=== PATIENT | female | born 1955 | race Caucasian/White ===

== ENCOUNTER 2017-02-02 22:00 | Inpatient (IN) | payer MEDICARE, OTHER ==
[~2017-02-02] VITALS: Ht 170.2 cm; Wt 57.2 kg
[2017-02-02 22:30] VITALS: BP 111/61
[2017-02-02] MEDS ORDERED: ACETAMINOPHEN 325 MG TABLET PO PRN (22:30)
[2017-02-02] MEDS ORDERED: MAG HYDROX/AL HYDROX/SIMETH 30 ML UDC PO PRN (22:30)
[2017-02-02] MEDS ORDERED: MAGNESIUM HYDROXIDE 30 ML UDC PO PRN (22:30)
[2017-02-02] MEDS ORDERED: ZOLPIDEM TARTRATE 5 MG TABLET PO PRN (22:30)
--- NOTE | 2017-02-02 22:30 | NUR ---
GPS ADMISSION NOTE, RECEIVED PATIENT FROM [facility] [place]. PATIENT ARRIVED ON THIS UNIT AT 2230 VIA STRETCHER WITH 2 EMT ESCORTS. PATIENT ADMITTED ON A 5150 HOLD FOR DTS AND GD . PER HOLD PATIENT WAS EXHIBITING UNUSUAL BEHAVIOR AND MAKING UNREALISTIC STATEMENTS. PATIENT REPORTS THAT, " THERE ARE MEN UNDER THE HOUSE AND THEY SPY ON ME. THESE MEN HAVE SHOES THAT HAVE LISTENING DEVICES ". PATIENT SYMPTOMS ARE INTERFERING WITH HER ABILITY TO ACCEPT OR ACCESS BASIC SELF CARE OR BE SAFE IN HER HOME. THE 5150 WAS REVIEWED AND THE DOCUMENTATION IN THE 5150 HOLD APPEARS TO REFLECT THE PRESENTATION OF THE PATIENT. UPON FACE TO FACE ASSESSMENT PATIENT IS CURRENTLY LYING IN BED AWAKE, HAS A COMPLAINT OF RIGHT KNEE PAIN AT 5 OUT 10 ON THE PAIN SCALE. PATIENT ALSO HAS RIGHT MOUTH PAIN FROM A LOST TOOTH AT 8 OUT 10 ON THE PAIN SCALE. PATIENT IS TAKING ORAL PAIN MEDICATION FOR THIS PAIN. PATIENT IS DISPLAYING NO S/S OF APPARENT DISTRESS. PATIENT BREATHING IS UNLABORED WITH EQUAL RISE AND FALL OF THE CHEST. PATIENT IS ALERT AND ORIENTATED X 3 ON ROOM AIR. PATIENT ASSISTED WITH TURING AND REPOSITIONING Q2HR AND PRN FOR COMFORT AND CIRCULATION. PATIENT HAS NO NEEDS AT THIS TIME. PATIENT IS NOTED TO BEING WITHDRAWN, ANXIOUS, COOPERATIVE, HAS AUDITORY DELUSIONS, AND NEEDS REDIRECTION. PATIENT DENIES SUICIDE IDEATIONS AND HOMICIDAL IDEATIONS AT THIS TIME. PATIENT IS UNDER THE PSYCHIATRIC CARE OF DR. POWELL AND THE MEDICAL CARE OF DR MCBRIDE. PATIENT BELONGINGS WERE INVENTORIED AND CHECKED FOR CONTRABAND. ALL CONTRABAND REMOVED AND STORED IN PATIENT HALLWAY LOCKER. PATIENT ADVANCED DIRECTIVES PREFERENCE, IMMUNIZATIONS QUESTIONER, NECESSARY PAPERWORK, AND SKIN ASSESSMENT COMPLETED. PATIENT ORIENTATED TO ROOM, FLOOR, AND STAFF WITH ALL QUESTIONS ANSWERED. PATIENT EDUCATED ON THE USE OF THE CALL CASTRO. PATIENT BED SIDE RAILS ARE UP X 2 FOR SAFETY. PATIENT BED IS LOCKED, LOW AND I WILL CONTINUE TO MONITOR THIS PATIENT Q 15 MIN WITH THE HELP OF STAFF TO MAINTAIN SAFETY.
[2017-02-02] MEDS ORDERED: LORAZEPAM 0.5 MG TABLET ONE (23:39)
[2017-02-02] MEDS: LORAZEPAM 0.5 MG TABLET PO PRN (23:43)
--- NOTE | 2017-02-02 23:43 | NUR ---
GPS RN NOTE, PATIENT HAS A COMPLAINT OF FEELING ANXIOUS AND WOULD LIKE MEDICATION TO HELP CALM HER DOWN. PATIENT VITAL SIGNS ARE STABLE. GAVE ATIVAN 1MG PO Q8HR PRN ORDERED. WILL REASSESS FOR ANXIETY AND I WILL CONTINUE TO MONITOR THIS PATIENT.
[2017-02-02] MEDS ORDERED: OXCA300T PO ×2 (23:55)
[2017-02-02] MEDS ORDERED: BUPR1FIL SL (23:56)
[2017-02-02] MEDS ORDERED: KETO10TA2 PO (23:58)
[2017-02-02] MEDS ORDERED: LEVO25TA7 PO (23:58)
[2017-02-03] MEDS ORDERED: PRAM0.253 PO
[2017-02-03] MEDS ORDERED: BACL10TA PO (00:03)
[2017-02-03] MEDS ORDERED: ARMO150T4 PO (00:04)
[2017-02-03] MEDS ORDERED: DOXE50CA4 PO (00:05)
[2017-02-03] MEDS ORDERED: HYDROCODONE/APAP 5/325MG 1 EACH TABLET PO PRN (01:30)
--- NOTE | 2017-02-03 01:32 | NUR ---
GPS RN NOTE, PATIENT HAS A COMPLAINT OF PAIN ON HER RIGHT KNEE AT 4 OUT 10 ON THE PAIN SCALE, USES NICOTINE, AND NEEDS A MED RECONCILIATION. PAGED [facility] AND INFORMED DR REED ZHOU OF MY FINDINGS. DR REED ZHOU ORDERED A 14MG NICOTINE PATCH TD DAILY, NORCO 5-325 1 TAB PO Q6HR PRN, AND STATED HE WOULD LOOK INTO DOING THIS PATIENT MEDICATION RECONCILIATION. ALL ORDERS NOTED AND CARRIED OUT. WILL CONTINUE TO MONITOR THIS PATIENT.
[2017-02-03] MEDS ORDERED: HYDROCODONE/APAP 5/325MG 1 EACH TABLET ONE (04:49)
--- NOTE | 2017-02-03 04:52 | NUR ---
GPS RN NOTE, PATIENT HAS A COMPLAINT OF CHRONIC RIGHT KNEE PAIN AT 6 OUT 10 ON THE PAIN SCALE AND WOULD LIKE MEDICATION AT THIS TIME. PATIENT VITAL SIGNS ARE STABLE. GAVE NORCO 5-325 1 TAB PO Q6 HR PRN ORDERED. WILL REASSESS PAIN AND I WILL CONTINUE TO MONITOR THIS PATIENT.
[2017-02-03 07:26] LABS: BILIRUBIN,TOTAL 0.2 mg/dL (0.2-1.0); CALCIUM, SERUM 8.6 mg/dL (8.5-10.1); CREATININE 0.7 mg/dL (0.6-1.3); POTASSIUM 4.1 mmol/L (3.5-5.1); TOTAL PROTEIN, SERUM 5.6 g/dL (6.4-8.2)
[2017-02-03 07:29] LABS: CHOLESTEROL 163 mg/dL (<200); HDL CHOLESTEROL 59 mg/dL (40-60); LDL 90 mg/dL (0-99); TRIGLYCERIDES 58 mg/dL (30-150)
[2017-02-03 07:35] LABS: BASOPHILS % (AUTO) 0.6 % (0.0-2.0); EOSINOPHILS # (AUTO) 0.2 /CMM (0.0-0.7); EOSINOPHILS % (AUTO) 5.8 % (0.0-6.0); HEMATOCRIT 35 % (33-45); HEMOGLOBIN 11.9 g/dL (11.5-14.8); LYMPHOCYTES % (AUTO) 25.3 % (20.0-44.0); MEAN CORPUSCULAR HEMOGLOBIN 31 PG (26.0-33.0); MEAN CORPUSCULAR HGB CONC 34 g/dl (31.0-36.0); MEAN CORPUSCULAR VOLUME 93 fL (82-100); MONOCYTES # (AUTO) 0.5 /CMM (0.1-1.30); MONOCYTES % (AUTO) 12.3 % (2.0-12.0); NEUTROPHILS # (AUTO) 2.2 /CMM (1.8-8.9); PLATELET COUNT (AUTO) 233 /CMM (150-450); RED BLOOD CELL COUNT(AUTO) 3.79 MIL/uL (4.0-5.2); WHITE BLOOD COUNT (AUTO) 3.9 K/uL (4.3-11.0)
[2017-02-03 08:00] VITALS: BP 100/67
[2017-02-03] MEDS: NICOTINE PATCH (14MG) 14 MG PATCH.TD24 TD SCH (08:27)
[2017-02-03] MEDS: LEVOTHYROXINE SODIUM 25 MCG TABLET PO SCH (08:27)
[2017-02-03] MEDS: OXCARBAZEPINE 150 MG TABLET PO SCH (12:10)
[2017-02-03] MEDS: LORAZEPAM 0.5 MG TABLET PO PRN ×2 (14:43→20:17)
[2017-02-03 16:00] VITALS: BP 120/41
--- NOTE | 2017-02-03 17:48 | NUR ---
Initial discharge note: Pt. lives alone in a mobile home [address] [place] [address] and wants to return when discharged. AG will confirm with brother Juan Ramon [phone] that pt. is safe living alone. Pt. has an telecom specialist appointment on February 10, at 2:15PM with Dr. Angel [phone]. AG will follow up with MD and will help form safe and proper discharge.
[2017-02-03] MEDS ORDERED: PRAMIPEXOLE DI-HCL 0.25 MG TABLET PO SCH (18:00)
--- NOTE | 2017-02-03 19:15 | NUR ---
in initial round patient complaining she lost her crown she took a shower at 615 pm left the crown in table warped around in tissue paper we check all over the room i am not sure patient is laying or telling the truth notify the charge nurse.
[2017-02-03 20:00] VITALS: BP 110/63
[2017-02-03] MEDS ORDERED: BACLOFEN (10 MG) 10 MG TABLET PO SCH ×2 (21:00→22:00)
[2017-02-03] MEDS ORDERED: OXCARBAZEPINE 150 MG TABLET PO SCH (22:00)
[2017-02-03] MEDS ORDERED: DOXEPIN HCL 10 MG CAPSULE PO SCH (22:00)
--- NOTE | 2017-02-04 07:30 | NUR ---
RN GPS OPENING NOTE PT IS OUT OF BED, A&OX4. NO SOB, BREATHING ON ROOM AIR. NO ACUTE DISTRESS NOTED, ATTENDED ALL NEEDS ANTICIPATED , DENIES SI/ HI AT THIS TIME. PT. IS COOPERATIVE. SAFETY PRECAUTIONS OBSERVED. WILL CONTINUE TO MONITOR. CALL LIGHT IS WITHIN REACH.
[2017-02-04 08:00] VITALS: BP 107/72
[2017-02-04] MEDS: OXCARBAZEPINE 150 MG TABLET PO SCH (10:05)
[2017-02-04] MEDS: LEVOTHYROXINE SODIUM 25 MCG TABLET PO SCH (10:05)
[2017-02-04] MEDS: NICOTINE PATCH (14MG) 14 MG PATCH.TD24 TD SCH (10:05)
[2017-02-04] MEDS: LORAZEPAM 0.5 MG TABLET PO PRN (10:10)
--- NOTE | 2017-02-04 12:19 | NUR ---
DR. MORRISON GAVE AN ORDER TO D/C HOLD AND D/C TO HER MOBILE HOME AT [address] [place] [address]. PT. WITHOUT DISTRESS, DENIES SUICIDAL AND HOMICIDAL AND TO FOLLOW UP WITH PSYCH AND MEDICAL DOCTORS. CALLED THE BROTHER CONSTANTINE AT [phone] AND LEFT A MESSAGE REGARDING THE DISCHARGE. PER PT. NO NEED FOR HER BROTHER TO CALL BACK BECAUSE SHE IS NOT LIVING WITH HIM. DR. MORRISON MADE AWARE THAT REFERENCE SERVICES HEAD LEFT A MESSAGE TO THE BROTHER AND SAID TO DISCHARGE HER IF HE WILL NOT CALL BACK. Addendum: 02/04/17 at 1709 by SIVA ROBBINS RN PT. IS FOR DISCHARGE WITH NO PRESCRIPTIONS AND PER PT. SHE DOESN'T NEED PRESCRIPTIONS BECAUSE SHE STILL HAVE THE MEDS.
--- NOTE | 2017-02-04 12:40 | NUR ---
DR. MAGALLON MADE AWARE OF THE DISCHARGE AND LIZBET ZEE FOR DISCHARGE AND RECONCILED MEDS.
--- NOTE | 2017-02-04 13:35 | NUR ---
RN NOTES DISCHARGE DISCHARGE ORDERS WERE OBTAINED BY DR. MORRISON TO DISCAHRGE PT. TO HER MOBILE HOME. PT. WAS PROVIDED DISCHARGE INSTRUCTIONS, AND VERBALIZED UNDERSTANDING. PT. SIGNED DISCHARGE PAPERS. BELONGINGS LIST CHECKED, AND SIGNED BY PT. ID BAND REMOVED, AND PICTURE OF RIGHT ARM TAKEN. PT. NO NEW MEDICATIONS PRESCRIBED AT THIS TIME, PT. WAS INSTRUCTED TO CONTINUE HOME MEDICATIONS PRESCRIBED, AND TO FOLLOW UP, WITH PSYCHIATRIST, AND PRIMARY DOCTOR WITHIN 1 -2 WEEKS.
--- NOTE | 2017-02-04 14:45 | NUR ---
GPS RN NOTES PT. CLAIMS IN ADDITION TO HER BELONGINGS LIST AFTER IT WAS CHECKED AND SIGNED BY THE PT., PT. SAID, " I AM MISSING A BAG OF GOLD".
--- NOTE | 2017-02-04 15:05 | NUR ---
GPS RN NOTES MONIQUE PANIAGUA CALLED THE BOTH NURSES WHO CHECKED WITH PT. AND SIGNED BELONGINGS LIST ON ADMISSION. BOTH NURSE WHO WERE CALLED SAID THAT THEY DID NOT SEE A BAG OF GOLD WHEN CHECKING IN PT.'S BELONGINGS.
--- NOTE | 2017-02-04 15:29 | NUR ---
GPS NOTES DISCHARGE PT. AGREED THAT SHE WILL GO HOME BY TAXI, AND THAT SHE WILL FOLLOW UP ON HER MISSING BAG OF GOLD.
--- NOTE | 2017-02-04 15:30 | NUR ---
GPS RN NOTES PT. LEFT WITH TAXI VOUCHER, DISCHARGE PACKET IN HANDS AND HER BELONGINGS. PT. WAS ESCORTED FROM THE GPS UNIT IN MEDICALLY STABLE CONDITION BY CATRACHITA.
[2017-02-04] MEDS ORDERED: BUPRENORPHINE HCL SL SCH (22:00)
[2017-02-04] MEDS ORDERED: NALOXONE HCL SL SCH (22:00)
[2017-02-04] MEDS ORDERED: DOXEPIN HCL (25 MG) 25 MG CAPSULE PO SCH (22:00)
== END 2017-02-04 15:30 | disposition home or self-care (01) | DRG 885 ==
LOC: GPS 22:00
PROVIDERS: ADMIT Psychiatry & Neurology Psychiatry; ATTEND Nurse Practitioner Acute Care
DX: F29 Unspecified psychosis not due to a substance or known physiological condition (principal); F11.259 Opioid dependence with opioid-induced psychotic disorder, unspecified; F32.9 Major depressive disorder, single episode, unspecified; E88.09 Other disorders of plasma-protein metabolism, not elsewhere classified; E03.9 Hypothyroidism, unspecified; G47.30 Sleep apnea, unspecified; F43.10 Post-traumatic stress disorder, unspecified; Z87.898 Personal history of other specified conditions
CPT/HCPCS: 36415; 80053-TC; 80061-TC; 85025-TC; 87081-TC